=== PATIENT | male | born 2000 | race Two or more races ===

== ENCOUNTER 2018-10-07 01:38 | Emergency (ER) | payer MEDICAID ==
[~2018-10-07] VITALS: Ht 172.7 cm; Wt 53.6 kg
[2018-10-07] MEDS ORDERED: KETOROLAC 30MG/ML VIAL IV STA (03:20)
[2018-10-07] MEDS ORDERED: SODIUM CHLORIDE 0.9% 1,000 ML IV ONE (03:20)
[2018-10-07 04:04] LABS: BASOPHILS % 0.6 % (0.0-2.0); HEMATOCRIT. 46.5 % (42.0-52.0); HEMOGLOBIN. 15.7 g/dL (14.0-18.0); LYMPHOCYTES % 49.3 % (20.0-50.0); MEAN CORPUSCULAR HEMOGLOBIN 28.2 pg (28.0-32.0); MEAN CORPUSCULAR VOLUME 83.4 fL (80.0-94.0); MEAN PLATELET VOLUME 8.6 fl (7.4-10.4); MONOCYTES % 6.5 % (2.0-8.0); NEUTROPHILS % 41.6 % (40.0-76.0); PLATELET 227 x1000/uL (130-400); RED BLOOD CELL COUNT 5.57 mill/uL (4.7-6.1); RED CELL DISTRIBUTION WIDTH 12.9 % (11.6-14.6)
[2018-10-07 04:09] LABS: CHLORIDE 108 mEq/L (98-107); INR 1.1; PROTHROMBIN TIME 11.4 sec (9.1-11.1)
[2018-10-07 04:26] LABS: CLARITY URINE CLEAR (CLEAR); COLOR URINE YELLOW (YELLOW); KETONES URINE TRACE (NEGATIVE); LEUKOCYTE ESTERASE URINE NEGATIVE (NEGATIVE); NITRITE URINE NEGATIVE (NEGATIVE); OCCULT BLOOD URINE NEGATIVE (NEGATIVE); PROTEIN URINE NEGATIVE (NEGATIVE); SPECIFIC GRAVITY URINE 1.023 (1.005-1.030)
[2018-10-07 08:23] VITALS: BP 115/76
== END 2018-10-07 08:25 | disposition home or self-care (01) ==
LOC: ER 01:38
DX: R10.30 Lower abdominal pain, unspecified (principal); N13.30 Unspecified hydronephrosis; R31.9 Hematuria, unspecified; F17.210 Nicotine dependence, cigarettes, uncomplicated; Z98.890 Other specified postprocedural states
CPT/HCPCS: 36415; 76770; 80053; 81003; 83690; 85025; 85610; 87086; 96374; 99284; J1885; J7030; Z7610